=== PATIENT | female | born 1930 | race Caucasian/White ===

== ENCOUNTER → 2016-10-17 | Outpatient (CLI) | payer OTHER, BC ==
--- NOTE | 2016-10-17 11:56 | DIAGNOSTIC IMAGING REPORT ---
VIDEO SWALLOW HISTORY: History of esophageal dilatation. DYSPHAGIA TECHNIQUE: Video fluoroscopic evaluation of swallowing was performed in the AP and lateral projections by the speech pathology staff. The patient is fed nectar-thick and thin liquid barium, a barium coated wafer, and barium pudding. FLUOROSCOPY TIME: 2.3 minutes.. COMPARISON STUDY: None. FINDINGS: With swallowing thin liquid barium, there was penetration but no evidence of aspiration. When swallowing nectar thick liquids, there is no aspiration or penetration. When swallowing pudding, there was vallecular retention. When swallowing a cracker with paste there was no aspiration or penetration. Note is made of disordered esophageal motility. IMPRESSION: 1. Penetration when swelling thin liquids but no evidence of aspiration. Disordered esophageal motility. 2. Please see the speech pathologist report for detailed findings and recommendations. Electronically signed by: Rafal Morales M.D. 10/17/2016 11:55 AM Dictated Date/Time: 10/17/2016 11:53 AM
--- NOTE | 2016-10-17 16:14 | SWALLOWING EVALUATION ---
REFERRING SPEECH PATHOLOGIST: n/a HISTORY: This 86 year-old female was referred for a VFSS at [facility] in order to address c/o globus sensation and solid food dysphagia. The patient has a PMH significant for multiple esophageal dilatations, GERD (takes Prilosec daily) and open heart surgery. Currently the patient's diet level is regular. PROCEDURE: The patient was seen in the Radiology Department of [facility] for the VFSS. Cursory examination of the oral cavity revealed upper and lower dentures that fit adequately. Movement of the articulators was WNL. The patient was seated on a stool and was viewed in both the Anterior-Posterior (A-P) and Lateral planes. Volitional phonation exercises completed in the A-P plane revealed bilateral vocal fold movement and vocal intensity within functional limits. In the lateral plane, the patient was given the following boluses: 1 tsp. thin liquid barium x 2, single swallow thin liquid barium self-presented from a cup, sequential swallows of thin liquid barium self-presented from a cup, 1 tsp. nectar-thick liquid barium, single swallow nectar-thick liquid barium self-presented from a cup, 1 tsp. barium pudding, and 1 club cracker with barium pudding. The patient was then repositioned into the A-P plane and given the following boluses: 1 tsp. barium pudding followed by a single swallow of thin liquid barium self-presented from a straw. RESULTS: Oral Stage: Interlabial bolus escape that did not progress beyond the cy border. Cohesive bolus between tongue and palate during oral bolus hold exercise. Timely and efficient mastication of solid bolus. Brisk tongue motion for bolus transport. Complete oral clearance after the swallow. Initiation of the pharyngeal swallow when the bolus head was in the valleculae. The oral stage of the swallow was functionally WNL. Pharyngeal Stage: No bolus between soft palate and pharyngeal wall. Partial superior movement of the thyroid cartilage with partial approximation of the arytenoids to the epiglottic petiole. Complete anterior hyoid movement. Complete epiglottic inversion. Complete laryngeal vestibular closure. Diminished pharyngeal stripping wave. Incomplete pharyngeal contraction in AP plane with presence of bilateral pseudodiverticulae that clear with a dry swallow. Partial distention and duration of PES opening with partial obstruction of flow. Narrow column of contrast between tongue base and pharyngeal wall. Collection of residue in the valleculae after the initial swallow. This cleared with a dry second swallow. There was coating of the laryngeal aspect of the epiglottis when swallowing larger boluses of thin liquids. There was no penetration or aspiration into the laryngeal vestibule during the study. There were cervical osteophytes present that made an impression on the esophageal lumen; however they did not obstruct bolus flow. Decreased PES opening, weak tongue base retraction and weak pharyngeal contraction were also noted. None of these prevented the patient from swallowing safely, but they contribute to her presenting symptoms/complaints. Esophageal Stage: Marked esophageal retention of barium was evident in the AP plane. Liquid wash helped minimize the retention, but did not eliminate it. SUMMARY/RECOMMENDATIONS: This patient presents with mild oral-pharyngeal dysphagia and more significant s/s esophageal dysfunction. The following is recommended: 1. Slippery diet: choose foods that are loose, moist, slippery, crunchy; avoid foods that are doughy, dry, thick; use condiments, healthy oils, sauces as needed to make foods slippery 2. Compensatory Strategies: Alternate foods and liquids frequently when eating; eat small meals more frequently; eat while positioned fully upright and stay upright for 30 minutes after a meal, keep head of bed elevated at least 30-degrees at all times-even for sleep 3. Consideration of f/u with GI for help with esophageal motility A summary of the results and recommendations was discussed with the patient and her son immediately following the study. The patient was given written information re: slippery diets. They verbalized understanding and are anticipating f/u with the referring physician. Thank you for referral of this patient. Please contact me at if any additional information is needed.
--- NOTE | 2016-10-27 11:30 | CODING QUERY MEDICAL NECESSITY ---
SUPPORTING DIAGNOSIS NEEDED Dr. Bowser, A supporting diagnosis is required for the test/procedure performed on this patient in order for us to be reimbursed by the patient's insurance. Please provide a supporting diagnosis for the following test/procedure listed below next to the test name along with your signature. *If there is no additional diagnosis for this patient that would support the following test/procedure please document that below next to the test/procedure. Test(s)/Procedure(s) that require a supporting diagnosis: * ([id number]) BARIUM SWALLOW DIAGNOSIS: DATE OF SERVICE: 10/17/16 Provider Signature: Date: Thank you Chai De La Garza [facility] [place] Information Management Once completed, please kindly fax back to [phone] For questions please call [phone]
== END | disposition home or self-care (01) ==
LOC: C.RAD 10:49
PROVIDERS: ATTEND Family Medicine
DX: R13.19 Other dysphagia (principal); K21.0 Gastro-esophageal reflux disease with esophagitis